=== PATIENT | female | born 1995 | race Caucasian/White ===

== ENCOUNTER 2023-05-26 11:03 | Emergency (ER) | payer OTHER, MEDICAID, SELFPAY ==
[2023-05-26 11:27] VITALS: BP 139/95; PULSE 93; RESP 18; TEMP 36.8; O2SAT 99; BMI 27.4
--- NOTE | 2023-05-26 12:19 | ED.FEVER ---
HPI - Fever <Tyrell Ramey PA-C - Last Filed: 05/26/23 14:02> General Chief Complaint: Fever Stated Complaint: sob, chest pains Time Seen by Provider: 05/26/23 11:48 Source: patient Mode of arrival: Ambulatory History of Present Illness HPI Narrative: This is a 27-year-old female presents to the emergency department due to chest pain shortness of breath for the last 3 days. States that she tested at home with a home COVID test which test positive. 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 Denies any abdominal pain nausea vomiting fevers, or any other concerning signs or symptoms. Related Data Previous Rx's Medication Instructions Recorded albuterol sulfate 90 mcg/actuation 1 inh inhalation Q4-6H PRN 05/26/23 breath activated powder inhaler shortness of breath #1 ea lidocaine HCl 2 % mucosal solution 1 applic mucous membrane Q12H PRN 05/26/23 (Lidocaine Viscous) pain #100 mL Allergies Allergy/AdvReac Type Severity Reaction Status Date / Time No Known Drug Allergies Allergy Verified 05/26/23 11:30 Review of Systems <JUNG Galvan Last Filed: 05/26/23 14:02> Review of Systems Narrative: GENERAL: Denies chills, fatigue, malaise, fever, sweats. HEENT: Denies sinus pain, ear pain, sore throat, difficulty swallowing, dizziness. RESPIRATORY: Reports chest pain or shortness of breath and cough Denies , , wheezing, hemoptysis, sputum. CARDIOVASCULAR: Denies chest pain, palpitations, orthopnea, edema, GASTROINTESTINAL: Denies nausea, vomiting, abdominal pain, diarrhea, constipation, melena. : Denies dysuria, frequency, incontinence, hematuria, urinary retention. MUSCULOSKELETAL: denies weakness, joint pain, or bony pain SKIN: Denies rash, skin lesions, or other NEUROLOGIC: Denies weakness, headache, numbness, change in speech, confusion, seizures, incoordination. PSYCHIATRIC: No concerning psychosocial issues. 12 point review of systems is negative except for those stated above Patient History <Tyrell Ramey PA-C - Last Filed: 05/26/23 14:02> Social History Smoking Status: Never smoker Smoking Status: Never smoker alcohol intake frequency: a few times a month Substance Use Type: marijuana Exam <JUNG Galvan Last Filed: 05/26/23 14:02> Narrative Exam Narrative: GENERAL: Well-developed patient, in mild distress. HEAD: Atraumatic. Normocephalic. EYES: Pupils equal round and reactive. Extraocular motions intact. No scleral icterus. No injection or drainage. ENT: Nose without bleeding, purulent drainage. Throat without erythema, tonsillar hypertrophy or exudate. Airway patent. NECK: Trachea midline. Non tender EXTREMITIES: No edema or joint tenderness. NEURO: AOx3. SKIN: No rash or erythema of visible areas CARDIOVASCULAR: Regular rate and rhythm without murmurs, gallops, or rubs. RESPIRATORY: Clear to auscultation. Breath sounds equal bilaterally. No wheezes, rales, or rhonchi. GASTROINTESTINAL: Abdomen soft, non-tender, nondistended. BACK: Nontender without deformity or crepitance. No flank tenderness. Initial Vital Signs Initial Vital Signs: Vital Signs Temperature 98.3 F 05/26/23 11:27 Pulse Rate 93 H 05/26/23 11:27 Respiratory Rate 18 05/26/23 11:27 Blood Pressure 139/95 H 05/26/23 11:27 Pulse Oximetry 99 05/26/23 11:27 Oxygen Delivery Method Room Air 05/26/23 11:27 <DO Anastacia Valles Last Filed: 05/26/23 15:59> Initial Vital Signs Initial Vital Signs: Vital Signs Temperature 98.3 F 05/26/23 11:27 Pulse Rate 93 H 05/26/23 11:27 Respiratory Rate 18 05/26/23 11:27 Blood Pressure 139/95 H 05/26/23 11:27 Pulse Oximetry 99 05/26/23 11:27 Oxygen Delivery Method Room Air 05/26/23 11:27 Course <JUNG Galvan Last Filed: 05/26/23 14:02> Orders Ordered: ED Orders 05/26/23 12:27 CXR [XR chest 2V] Stat 05/26/23 12:32 Respiratory Panel (Film Array) Stat Vital Signs Vital signs: Vital Signs - 8 hr 05/26/23 11:27 Temperature 98.3 F Pulse Rate 93 H Respiratory Rate 18 Blood Pressure 139/95 H Pulse Oximetry 99 Oxygen Delivery Method Room Air <DO Anastacia Valles Last Filed: 05/26/23 15:59> Orders Ordered: ED Orders 05/26/23 12:27 CXR [XR chest 2V] Stat 05/26/23 12:32 Respiratory Panel (Film Array) Stat Vital Signs Vital signs: Vital Signs - 8 hr 05/26/23 11:27 Temperature 98.3 F Pulse Rate 93 H Respiratory Rate 18 Blood Pressure 139/95 H Pulse Oximetry 99 Oxygen Delivery Method Room Air MDM - Fever <Tyrell Ramey PA-C - Last Filed: 05/26/23 14:02> Lab Data Labs: Lab Results 05/26/23 Range/Units 12:32 Chlamy pneumoniae PCR Not detected (Not Detect) Adenovirus (PCR) Not detected (Not Detect) B.parapertussis DNA PCR Not detected (Not Detecte) Coronavirus OC43 (PCR) Not detected (Not Detect) Coronavirus HKU1 (PCR) Not detected (Not Detect) Coronavirus 229E (PCR) Not detected (Not Detect) SARS-CoV-2 (PCR) Detected H (Not Detecte) Coronavirus NL63 (PCR) Not detected (Not Detect) Human Metapneumovir PCR Not detected (Not Detect) Influenza Type A (PCR) Not detected (Not Detect) Influenza Type B (PCR) Not detected (Not Detect) M. pneumoniae (PCR) Not detected (Not Detect) Parainfluenza 1 (PCR) Not detected (Not Detect) Parainfluenza 2 (PCR) Not detected (Not Detect) Parainfluenza 3 (PCR) Not detected (Not Detect) Parainfluenza 4 (PCR) Not detected (Not Detect) RSV (PCR) Not detected (Not Detect) Entero/Rhino (PCR) Not detected (Not Detect) Imaging Data Chest x-ray: Radiologist's Impression: [address] [address] XRay Report Signed Patient: Mars Varela MR#: [id number] : 1995 Acct:[id number] Age/Sex: 27 / F Date of Service: 05/26/23 Loc: ED Accession Number: [id number] Procedure: XR chest 2V Ordering Provider: Tyrell Ramey P.A-C PROCEDURE: XR CHEST 2V INDICATIONS: Chest pain, shortness of breath TECHNIQUE: 2 views of the chest were acquired. COMPARISON: None. FINDINGS: Surgical changes and devices: None. Lungs and pleura: Lungs are clear. No pleural effusions or pneumothorax. Mediastinum: Mediastinal contours are normal. Heart size is normal. Bones and chest wall: No suspicious bony abnormalities. Soft tissues appear unremarkable. IMPRESSION: No acute cardiopulmonary abnormality is seen. Dictated by: Scottie Hill M.D. on 05/26/2023 at 12:00 Approved by: Scottie Hill M.D. on 05/26/2023 at 12:00 [facility] Narrative Medical decision making narrative: ED course: This is a 26-year-old female presents emergency department due to 3 days of chest pain shortness of breath after being diagnosed with COVID. Shared decision-making utilized and repeat respiratory panel ordered which did show positive for COVID. Chest x-ray ordered which was unremarkable. Vitals within normal limits and low concern PE. We will prescribe an albuterol inhaler as patient reports some shortness of breath while lying down. Recommended supportive care for self-limiting disease. CC: Shortness of breath Complicating co-morbidities: None Data collected from: Previous notes Medical records reviewed: Patient has not been to this emergency department the past. Differential considered, but not limited to: Viral URI, pneumonia, PE Exam documented above, pertinent findings include: Unremarkable Lab Test results independently reviewed as above. Pertinent findings: Respiratory panel positive for COVID Imaging studies independently reviewed: Chest x-ray unremarkable Scores Used: None MIPS Elements: None Consultations: None Treatments: None Re-evaluations: None Discussion: Discussed plan with the patient was comfortable with the plan Diagnosis: COVID Disposition: see below, along with detailed discharge instructions that have been reviewed with patient as well as indications for ED re-evaluation and additional outpatient follow up <Naveen Choe DO - Last Filed: 05/26/23 15:59> Lab Data Labs: Lab Results 05/26/23 Range/Units 12:32 Chlamy pneumoniae PCR Not detected (Not Detect) Adenovirus (PCR) Not detected (Not Detect) B.parapertussis DNA PCR Not detected (Not Detecte) Coronavirus OC43 (PCR) Not detected (Not Detect) Coronavirus HKU1 (PCR) Not detected (Not Detect) Coronavirus 229E (PCR) Not detected (Not Detect) SARS-CoV-2 (PCR) Detected H (Not Detecte) Coronavirus NL63 (PCR) Not detected (Not Detect) Human Metapneumovir PCR Not detected (Not Detect) Influenza Type A (PCR) Not detected (Not Detect) Influenza Type B (PCR) Not detected (Not Detect) M. pneumoniae (PCR) Not detected (Not Detect) Parainfluenza 1 (PCR) Not detected (Not Detect) Parainfluenza 2 (PCR) Not detected (Not Detect) Parainfluenza 3 (PCR) Not detected (Not Detect) Parainfluenza 4 (PCR) Not detected (Not Detect) RSV (PCR) Not detected (Not Detect) Entero/Rhino (PCR) Not detected (Not Detect) Discharge Plan Departure Patient Disposition: Home Clinical Impression: COVID-19 Activity Restrictions/Additional Instructions: Thank you for coming to the [facility] Emergency Department today. As we discussed your chest x-ray was unremarkable. No evidence of pneumonia or other lung abnormality. Your symptoms you are experiencing most likely due to the your COVID diagnosis. This is a self-limiting disease that should improve over the next week or so. May use the albuterol inhaler to help with the breathing. Please return to the emergency department if you develop any significant new chest pain or shortness of breath or any other concerning signs or symptoms. I hope you feel better soon. Please follow up with your primary care provider within a week if your symptoms continue. If you do not have a primary care provider please contact the [facility] Resource line at [phone]. They will ask some questions about your medical history and help you get set up with a provider in the community. Prescriptions: New lidocaine HCl [Lidocaine Viscous] 2 % solution 1 applic mucous membrane Q12H PRN (Reason: pain) Qty: 100 0RF albuterol sulfate 90 mcg/actuation aerosol powdr breath activated 1 inh inhalation Q4-6H PRN (Reason: shortness of breath) Qty: 1 0RF Stand Alone Forms: Patient Portal/API ED Sign-out <Naveen Choe, DO - Last Filed: 05/26/23 15:59> Cosign ED Attending Cosignature Attestation: Dr Choe Co-Sign Statement: I was available for consultation during this patient's emergency department visit. This chart is signed by myself for administrative purposes only. I did not have direct contact with this patient during this visit. They were seen independently by the APC.
--- NOTE | 2023-05-26 12:27 | DI.RAD.S_ITS ---
PROCEDURE: XR CHEST 2V INDICATIONS: Chest pain, shortness of breath TECHNIQUE: 2 views of the chest were acquired. COMPARISON: None. FINDINGS: Surgical changes and devices: None. Lungs and pleura: Lungs are clear. No pleural effusions or pneumothorax. Mediastinum: Mediastinal contours are normal. Heart size is normal. Bones and chest wall: No suspicious bony abnormalities. Soft tissues appear unremarkable. IMPRESSION: No acute cardiopulmonary abnormality is seen. Dictated by: Scottie Hill M.D. on 05/26/2023 at 12:00 Approved by: Scottie Hill M.D. on 05/26/2023 at 12:00
[2023-05-26 13:25] LABS: Adenovirus Not Detected (Not Detect); B. parapertussis Not Detected (Not Detecte); Bordetella pertussis Not Detected (Not Detect); Chlamydophila pneumoniae Not Detected (Not Detect); Coronavirus 229E Not Detected (Not Detect); Coronavirus HKU1 Not Detected (Not Detect); Coronavirus NL 63 Not Detected (Not Detect); Coronavirus OC43 Not Detected (Not Detect); Human Metapneumovirus Not Detected (Not Detect); Human Rhinovirus/Enterovirus Not Detected (Not Detect); Influenza A Not Detected (Not Detect); Influenza B Not Detected (Not Detect); Mycoplasma pneumoniae Not Detected (Not Detect); Parainfluenza Virus 1 Not Detected (Not Detect); Parainfluenza Virus 2 Not Detected (Not Detect); Parainfluenza Virus 3 Not Detected (Not Detect); Parainfluenza Virus 4 Not Detected (Not Detect); Respiratory Syncytial Virus Not Detected (Not Detect)
[2023-05-26 13:49] LABS: SARS- CoV-2 Detected (Not Detecte)
== END 2023-05-26 14:10 | disposition home or self-care (01) ==
PROVIDERS: Emergency Provider Physician Assistant Medical
DX: U07.1 COVID-19 (principal)
CPT/HCPCS: 71046; 87633; 99283